=== PATIENT | male | born 1955 | race Caucasian/White ===

== ENCOUNTER 2018-09-16 11:29 | Inpatient (IN) | payer BC, OTHER ==
[~2018-09-16] VITALS: Ht 177.8 cm; Wt 81.6 kg
[2018-09-16 11:30] VITALS: BP 121/59
[2018-09-16 12:16] LABS: BASOPHILS 0.3 % (0.0-2.0); EOSINOPHILS 0.3 % (0.0-3.0); HEMATOCRIT 43.3 % (42.0-52.0); HEMOGLOBIN 14.5 gm/dL (14.0-18.0); LYMPHOCYTES 8.4 % (24.0-44.0); MCH 30.8 pg (26.0-34.0); MCHC 33.5 g/dL (28.0-37.0); MCV 92.1 fL (80.0-100.0); MONOCYTES 2.9 % (1.0-8.0); PLATELET COUNT 262 thou/uL (150-400); POLYS 88.1 % (36.0-66.0); RDW 13.6 % (10.5-14.5); WBC 15.8 thou/uL (4.0-11.0)
[2018-09-16 14:07] LABS: ANION GAP 10 mmol/L (7-16); BUN 20 mg/dL (7-18); CALCIUM 9.1 mg/dL (8.5-10.1); CHLORIDE 102 mmol/L (98-107); CO2 26 mmol/L (21-32); CREATININE 1.2 mg/dL (0.7-1.3); GLUCOSE 160 mg/dL (74-106); POTASSIUM 3.3 mmol/L (3.5-5.1); SGOT 27 U/L (15-37); SGPT 31 U/L (30-65); SODIUM 138 mmol/L (136-145); TOTAL BILIRUBIN 0.4 mg/dL (<0.1-1.0); TROPONIN-I <0.06 ng/mL (<0.06)
[2018-09-16 14:22] LABS: URINE BILIRUBIN NEGATIVE (Negative); URINE BLOOD NEGATIVE (Negative); URINE CLARITY CLEAR; URINE COLOR YELLOW; URINE GLUCOSE-RANDOM* NEGATIVE (Negative); URINE KETONES NEGATIVE (Negative); URINE LEUKOCYTES-REFLEX NEGATIVE (Negative); URINE NITRITE-REFLEX NEGATIVE (Negative); URINE PROTEIN (DIPSTICK) NEGATIVE (Negative)
[2018-09-16] MEDS ORDERED: CIPRO500 MG PO (14:35)
[2018-09-16] MEDS ORDERED: FLOMAX0.4 MG PO (14:35)
[2018-09-16] MEDS ORDERED: BENAZEPRIL HCL40 MG PO (14:36)
[2018-09-16] MEDS ORDERED: AMLODIPINE BESY10 MG PO (14:37)
[2018-09-16] MEDS ORDERED: PLAVIX 75 MG TA75 M1 PO (14:37)
[2018-09-16] MEDS ORDERED: METRONIDAZOLE500 M4 PO (14:38)
[2018-09-16] MEDS ORDERED: COREG6.25 MG PO (14:38)
[2018-09-16] MEDS ORDERED: CRESTOR40 MG PO (14:38)
[2018-09-16] MEDS ORDERED: CHLORTHALIDONE25 MG PO (14:39)
[2018-09-16 15:27] VITALS: BP 120/66
[2018-09-16 15:28] VITALS: BP 120/66
--- NOTE | 2018-09-16 16:06 | NUR ---
ATTEMPTED TO GIVE REPORT TO GAYLE CHANDLER RN; HELD FOR APPROX 3 MIN; WILL CALL BACK NAOMI
[2018-09-16 19:50] VITALS: BP 122/62
--- NOTE | 2018-09-16 19:50 | NUR ---
Admitted pt on the floor due to syncope, fracture on right ankle which he aquired from the syncopal episode. A+0x4. On room air. On carb controlled diet. With IV at L AC- verified with Dr Lester if to continue IVF or shift to since no further orders for the IVF. Pt visited by children today. Started on heart monitor, initial tele strips printed and placed on chart. Dr Lester informed re: pt admitted on the floor, asked if with further orders; as per Dr Lester ED already informed him and will see pt tomorrow, informed that meds has been reconciled at ER and asked which to resume- a/w reply, asked for PRN pain meds prescription- ordered Fentanyl 25mcg q2, and ordered NS to run at 100ml/hr- orders put in; also to include Zofran q4 PRN for nausea- Emar shown QT prolonging med- Dr Lester informed and aware. On falls risk- d/t admitting diagnosis of syncope, falls bundle in place. Pt on sby assist to toilet, offered walker so he won't weight bear on his R ankle- pt refused walker. With repeat Troponin at 1944- night staff informed, orders put in. Pt complained of pain while ongoing admission assessment, PRN pain medication given as prescribed. Night staff informed re: Pt's elevated WBC d/t diverticulitis and ongoing antibiotic treatment(Flagyl and Metronidazole) Day 9- Pt started on 09/07. Pt with Left adrenal mass seen from ED diagnostics- as per ED staff pt not aware of this and to let Dr Lester discuss it w/ pt- night staff informed. Pt with Hx of Afib and micheal, Heart rate on 50's-60's which was pt's baseline according to ER staff- verified if Dr Notified- ER staff mentioned that is aware. Vital signs stable, pt kept safe and comfortable.
[2018-09-17] VITALS (8 sets, daily range): BP systolic 114–134; BP diastolic 67–76
--- NOTE | 2018-09-17 05:15 | NUR ---
Assumed pt care at 1900. Pt A/OX4,VSS Sinus micheal at times on the monitor 50-60 asymptomatic. C/o pain to Right ankle medicated with Fentanyl with relief reported.Right ankle with a splint wrapped in acewrap,circulation intact. Up with SBA. IVF infusing via LAC without problems. Fall precautions in place. Resting quietly with eyes closed at this time,will continue to monitor pt.
--- NOTE | 2018-09-17 08:36 | NUR ---
ASSESSMENT: CM REVIEWED CHART AND MET WITH PATIENT AT THE BEDSIDE. PT WAS ADMITTED WITH SYNCOPE/FIBULA FX. PT REPORTS LIVING IN A HOUSE ALONE. PT REPORTS ABOUT 6 STEPS W HANDRAILS TO ENTER THE HOME AND ABOUT ANOTHER 6 STEPS WITH HANDRAILS ONCE INSIDE TO THE MAIN LEVEL. PT REPORTS HE NORMALLY AMBULATES INDEPENDENTLY. PT REPORTS THAT HE HAS A GRAB BAR AND SHOWER BENCH IN THE SHOWER AND IS INDEPENDENT WITH ADLS. PT REPORTS HE HAS NOT HAD HH IN THE PAST. CM DISCUSSED ROLE. PT IS TO SEE ORTHOPEDIC PHYSICIAN TODAY FOR FUTHER RECOMMENDATIONS FOR FX AND CM WILL CONTINUE TO FOLLOW.
[2018-09-17] MEDS ORDERED: NORCO 5-325 TA1 EAC1 PO (14:00)
--- NOTE | 2018-09-17 15:33 | NUR ---
PT is recommending pt have cane for assistance with ambulation. [facility] to provide cane for home use. No other needs identified.
--- NOTE | 2018-09-17 17:32 | NUR ---
Patient discharged and left unit at 1730 this evening. Patient out by wheelchair with transporter and daughter taking him home. Prescriptions, discharge instructions, and prescription print outs given to patient. All belongings with patient. 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
--- NOTE | 2018-09-20 17:48 | EKG ---
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 : 1955 Requested By: Tosha Rodney Order Number: [id number] MD: Tarik Rocha Measurements Intervals Iva Rate: 52 P: 61 OK: 188 QRS: -21 QRSD: 101 T: -26 QT: 419 QTc: 390 Interpretive Statements Sinus bradycardia Multiple ventricular premature complexes Inferior infarct, old Nonspecific T wave abnormality Baseline wander in lead(s) V4 Compared to ECG 08/28/2008 15:11:21 Ventricular premature complex(es) now present T wave abnormality is now present inferior Q waves are more prominent Electronically Signed On 09-20-2018 17:48:44 CDT by Tarik Rocha [email or web address] ��������������������������������������������� <ELECTRONICALLY SIGNED> ���������������������������������������� By: Tarik Rocha MD, [facility] ��������������������������������������������� 09/20/18 1748 1200 1200 Tarik Rocha MD, [facility] /EPI
== END 2018-09-17 17:43 | disposition home or self-care (01) | DRG 563 ==
LOC: ER 11:29 → 3W 14:36 → EROBS 14:36 → 3W 15:27 → ENTRNSPT 09-17 17:19 → 3W 09-17 17:43
PROVIDERS: Nurse Practitioner Family; ADMIT Family Medicine
PROC: 2W3QX1Z Immobilization of Right Lower Leg using Splint (ICD-10-PCS; principal; 2018-09-16)
DX: S82.61XA Displaced fracture of lateral malleolus of right fibula, initial encounter for closed fracture (principal); I10 Essential (primary) hypertension; D72.829 Elevated white blood cell count, unspecified; E78.5 Hyperlipidemia, unspecified; I25.10 Atherosclerotic heart disease of native coronary artery without angina pectoris; R00.1 Bradycardia, unspecified; I05.0 Rheumatic mitral stenosis; I25.2 Old myocardial infarction; Z87.891 Personal history of nicotine dependence; Z95.5 Presence of coronary angioplasty implant and graft; W18.39XA Other fall on same level, initial encounter; Y93.89 Activity, other specified; Y92.89 Other specified places as the place of occurrence of the external cause; Y99.8 Other external cause status
CPT/HCPCS: 10879

== ENCOUNTER → 2019-08-11 | Outpatient (CLI) | payer BC, OTHER ==
[~2019-08-11] MED LIST: AMLODIPINE BESY10 MG PO; BENAZEPRIL HCL40 MG PO; CHLORTHALIDONE25 MG PO; CIPRO500 MG PO; COREG6.25 MG PO; CRESTOR40 MG PO; FLOMAX0.4 MG PO; METRONIDAZOLE500 M4 PO; NORCO 5-325 TA1 EAC1 PO; PLAVIX 75 MG TA75 M1 PO
== END ==
LOC: SJCVCIMAG 09:24
PROVIDERS: ATTEND Internal Medicine Cardiovascular Disease
DX: I65.23 Occlusion and stenosis of bilateral carotid arteries (principal); I25.10 Atherosclerotic heart disease of native coronary artery without angina pectoris; I10 Essential (primary) hypertension; E78.00 Pure hypercholesterolemia, unspecified; R55 Syncope and collapse

== ENCOUNTER → 2020-02-10 | Outpatient (CLI) | payer BC, OTHER | LOC: SJCVCIMAG 08:27 | PROVIDERS: ATTEND Internal Medicine Cardiovascular Disease | DX: I49.3 Ventricular premature depolarization (principal); I25.10 Atherosclerotic heart disease of native coronary artery without angina pectoris; I25.2 Old myocardial infarction; E78.5 Hyperlipidemia, unspecified; I10 Essential (primary) hypertension; R94.31 Abnormal electrocardiogram [ECG] [EKG]; Z87.891 Personal history of nicotine dependence ==

== ENCOUNTER → 2021-02-14 | Outpatient (CLI) | payer BC, OTHER | LOC: SJCVCIMAG 09:50 | PROVIDERS: ATTEND Internal Medicine Cardiovascular Disease | DX: I37.1 Nonrheumatic pulmonary valve insufficiency (principal); I10 Essential (primary) hypertension; R00.1 Bradycardia, unspecified; E78.5 Hyperlipidemia, unspecified; Z87.891 Personal history of nicotine dependence ==

== ENCOUNTER 2021-03-30 14:03 | Inpatient (IN) | payer BC, OTHER ==
[~2021-03-30] VITALS: Ht 182.9 cm; Wt 90.6 kg
--- NOTE | ~2021-03-30 | P ---
[facility] [place] [address] [place] [address] PROCEDURE REPORT Name: TONY KING Room #: 218-P [facility] IN M.R.#: [id number] Admission: 03/30/21 Attend Phys: Manny Chawla MD Discharge: Date of : 57 Report #: [id number] THIS REPORT FOR: cc: Jose Lester MD, Neal A. MD Couchonnal, Luis F. MD ~ DATE OF SERVICE: 04/03/2021 ICD IMPLANTATION PREOPERATIVE DIAGNOSES: 1. Sustained monomorphic ventricular tachycardia. 2. Sinus bradycardia. 3. Coronary artery disease status post prior myocardial infarction. 4. Ischemic cardiomyopathy. 5. Presyncope and syncope. POSTOPERATIVE DIAGNOSES: 1. Sustained monomorphic ventricular tachycardia. 2. Sinus bradycardia. 3. Coronary artery disease status post prior myocardial infarction. 4. Ischemic cardiomyopathy. 5. Presyncope and syncope. HISTORY: The patient is a 65-year-old with history of coronary artery disease status post prior inferior NE, who has been experiencing syncope and presyncopal episodes, had a monitor tech showing sustained monomorphic ventricular tachycardia. He underwent diagnostic cardiac catheterization showing stable coronary artery disease. He had a recent echocardiogram showing preserved ejection fraction with evidence of an old inferior NE. He is here for ICD implantation for secondary prevention of sudden cardiac . ANESTHESIA: The patient underwent MAC anesthesia with no anesthesia related complications. DESCRIPTION OF PROCEDURE: The patient underwent informed consent. He was brought to the EP laboratory in fasting and nonsedated state. He was prepped and draped in a standard fashion. I injected lidocaine at the incision site. Incision was made, pocket created over the prepectoral fascia. Access was obtained twice to left axillary vein using the extrathoracic approach with sheaths positioned using the modified Seldinger technique. Under fluoroscopy, RV lead was placed in the right ventricular apex and atrial lead was placed in the right atrial appendage, both with adequate pacing and sensing thresholds. Leads were sutured to the prepectoral fascia. Device connected, tug test performed. Pocket was irrigated with vancomycin. Pocket closed in 2 layers. Surgical glue placed to outer skin layer. The patient awoke neurologically and [facility] [address] [place] [address] PROCEDURE REPORT Name: TONY KING Room #: 218-P [facility] IN [facility].#: [id number] Admission: 03/30/21 Attend Phys: Manny Chawla MD Discharge: Date of : 57 Report #: [id number] hemodynamically intact. No complications and no significant bleeding. The implanted defibrillator was a [employer], model number TKMO6M2, serial number [id number]. The atrial lead was a 5076, 52 cm, serial number [id number]. RV lead was 6935, 62 cm, serial number [id number]. Atrial lead demonstrated P waves of 3.3 millivolts, pacing impedance of 454 ohms, pacing threshold 0.7 volts at 0.5 milliseconds. RV lead demonstrated R waves of 14.7 millivolts, pacing impedance of 632 ohms, pacing threshold 0.5 volts at 0.5 milliseconds. The device was programmed to DDDR 60-130 mode. VT monitor zone was set at 180-240 beats per minute with 3 rounds of burst followed by 3 rounds of ramp followed by max output shocks. The VF zone was set at greater than 240 beats per minute with ATP while charging followed by max output shocks. CONCLUSION: Successful dual chamber ICD implantation. By: 1402 [id number] Javon Squires MD /nt
[2021-03-30 14:10] VITALS: BP 177/76
[2021-03-30] MEDS ORDERED: ASA81BEC PO (14:16)
[2021-03-30 14:58] LABS: ABSOLUTE NEUTROPHILS 7.5 thou/uL (1.4-8.2); BASOPHILS 0.4 % (0.0-2.0); EOSINOPHILS 0.2 % (0.0-3.0); HEMATOCRIT 43.3 % (42.0-52.0); HEMOGLOBIN 14.4 gm/dL (14.0-18.0); LYMPHOCYTES 11.9 % (24.0-44.0); MCHC 33.2 g/dL (28.0-37.0); MCV 90.4 fL (80.0-100.0); MONOCYTES 2.5 % (1.0-8.0); PLATELET COUNT 277 thou/uL (150-400); RBC 4.79 mil/uL (4.50-6.00); RDW 13.6 % (10.5-14.5); WBC 8.8 thou/uL (4.0-11.0)
[2021-03-30 15:18] LABS: CREATININE 1.3 mg/dL (0.7-1.3); POTASSIUM 3.8 mmol/L (3.5-5.1)
[2021-03-30 15:20] LABS: APTT 26.5 Seconds (24.5-32.8); INR 1.03; PROTIME 11.2 Seconds (10.5-12.1)
[2021-03-30 15:28] LABS: ALBUMIN 4.1 g/dL (3.4-5.0); MAGNESIUM 2.3 mg/dL (1.8-2.4); TOTAL BILIRUBIN 0.4 mg/dL (0.2-1.0); TOTAL PROTEIN 7.1 g/dL (6.4-8.2)
--- NOTE | 2021-03-30 16:42 | NUR ---
Pt admitted related to v tach. Cm reviewed chart and spoke with care team. Pt indicated he lives alone in a house with 6 steps to enter and 6 steps to jarvis level inside. 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 Pt indicated his dtr marv monreal is good contace . Cardiology saw and inidcated that pt had multiple episodes noted on recent event monitor. Patient having episodes of presyncope. They plan to initiate IV amiodarone bolus and then 1 mg/min drip, run continuously until order DC'd. Will convert to PO prior to discharge. Tentative plans for cardiac catheterization with Dr. Palacios on Friday. Will consult electrophysiology to see on Friday, possible AICD placement on Friday. Pt indicated he plans to go on vacation in [place] upon dc. cm following regarding dc planning.
[2021-03-30] MEDS ORDERED: ZETIA10 MG PO (23:15)
[2021-03-30] MEDS ORDERED: PREDNISONE 10 M10 M1 PO (23:34)
[2021-03-30] MEDS ORDERED: DORYX MPC120 MG PO (23:36)
[2021-03-31 04:45] VITALS: BP 100/61; BP 123/62
--- NOTE | 2021-03-31 05:08 | NUR ---
PT ADMITTED TO ROOM 218 AROUND 2220 FOR VTACH, A&0X4, DFENIES PAIN OR SOA, SB BETWEEN 40S-50S, ADMISSION HX, ASSESSMENT AND EDUCATION COMPLETED, PT ON CONTINUOUS AMIO GTT AT 1, NO EVENTS NOTED ON THIS PT, VITAL SIGNS STABLE, NO EVENTS NOTED ON THIS PT, WILL CONTINUE TO MONITOR PER POC
[2021-03-31 08:10] VITALS: BP 147/74
[2021-03-31 12:10] VITALS: BP 110/57
[2021-03-31 15:45] VITALS: BP 104/49
--- NOTE | 2021-03-31 17:02 | NUR ---
Pt has been A&0x4, SB on monitor, HR 40s-50s. Amiodarone drip DC'd and pt started on PO amiodarone BID. Pt has had no episodes of VTach. No complaints of chest pain. Pt has been resting in bed and chair and is up ad marimar. No current concerns. continue to monitor.
[2021-03-31 20:21] VITALS: BP 120/73
[2021-03-31] MEDS ORDERED: XANAX 0.25 MG0.25 MG PO (21:27)
[2021-04-01 04:35] VITALS: BP 106/63
--- NOTE | 2021-04-01 05:12 | NUR ---
ASSESSMENTS CHARTED, VSS, NO C/O PAIN, PLANNED C. CATH ON FRIDAY, WILL CON'T TO MONITOR PER PPOC.
[2021-04-01 07:50] VITALS: BP 122/71
--- NOTE | 2021-04-01 11:21 | EKG ---
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 : 1955 Requested By: Manny Chawla Order Number: [id number] MD: Steve Palacios Measurements Intervals [place] Rate: 47 P: 63 LA: 183 QRS: -20 QRSD: 110 T: -19 QT: 425 QTc: 376 Interpretive Statements Sinus bradycardia Borderline left axis deviation Nonspecific T wave abnormalities Compared to ECG 09/16/2018 12:00:35 Ventricular premature complex(es) no longer present Myocardial infarct finding no longer present T-wave abnormality no longer present Electronically Signed On 04-01-2021 11:21:43 ADVERTISING DIRECTOR by Steve Palacios [email or web address] <ELECTRONICALLY SIGNED> By: Steve Palacios MD 04/01/21 1121 1419 1419 Steve Palacios MD /[facility]
[2021-04-01 11:55] VITALS: BP 115/65
[2021-04-01 15:50] VITALS: BP 106/56
--- NOTE | 2021-04-01 17:09 | NUR ---
Pt has been A&0x4, VS stable, SB on the monitor and aferbile. Pt ambulated around unit in AM. Pt has been sitting in chair. Daughter was at bedside. No complaints of pain. Plan is for procedur 04/[address] Palacios and pt is aware of NPO status after midnight tonight. No current concerns. Continue to monitor.
[2021-04-01 20:05] VITALS: BP 134/57
[2021-04-02] VITALS (10 sets, daily range): BP systolic 111–132; BP diastolic 55–81
--- NOTE | 2021-04-02 05:15 | NUR ---
PROGRESS PT A/O X4. LUNGS CLEAR. VSS. UP AD GANESH VOIDING QS NPO AFTER MN PENDING LEFT HEART CATH IN AM. VOIDING QS TELEMETRY INTACT READING SR CONTINUE POC.
[2021-04-02 11:38] LABS: HEMATOCRIT 42.3 % (42.0-52.0); HEMOGLOBIN 14.1 gm/dL (14.0-18.0); MCH 29.9 pg (26.0-34.0); MCHC 33.2 g/dL (28.0-37.0); MCV 89.9 fL (80.0-100.0); RBC 4.7 mil/uL (4.50-6.00); RDW 13.3 % (10.5-14.5); WBC 9.8 thou/uL (4.0-11.0)
[2021-04-02 11:44] LABS: CALCIUM 8.6 mg/dL (8.5-10.1); CREATININE 1.3 mg/dL (0.7-1.3); POTASSIUM 3.6 mmol/L (3.5-5.1)
--- NOTE | 2021-04-02 14:12 | CATHLAB ---
[facility] [place] [address] [place] [address] INVASIVE PROCEDURE REPORT Name: TONY KING Room #: 218-P ADM IN M.R.#: [id number] Admission: 03/30/21 Attend Phys: Manny Chawla MD Discharge: Date of : 57 Report #: [id number] THIS REPORT FOR: cc: Jose Lester MD, Neal A. MD Park, Jin S. MD ~ APPROVED REPORT Study performed: 04/02/2021 07:35:07 Patient Details Patient Status: In-Patient Room #: 218 The patient is a 65 year-old male Event Personnel Steve Palacios Broadcast Technician, Mike Gale RN RN, Nayana Jon Wood, Amy RTR Monitor, Jaimie Atkins RTR, [employer] PROGRAM SPECIALIST Monitor Procedures Performed Art Access - R femoral artery* Hemostasis with Manual pressure Left Heart Cath w/LT VGram [id number] LHCLV 48782 Initial Mod Sed Same Phys/QHP Gr5y 711074 78211 Mod Sed Same Phys/QHP Ea 255131 Indication Arrhythmia, Dizziness and vertigo, Chest pain, The patient presented with dizziness due to nonsustained ventricular tachycardia on the monitor, longest episode is 58 seconds. Risk Factors Hypercholesterolemia, Coronary Artery DiseaseHypertension Previous Procedures/Diagnoses Previous PCI, Previous PR Procedure Narrative The Right Groin^ was infiltrated with 1% Lidocaine subcutaneous anesthesia. A PINNACLE 4FR Sheath #[id number] sheath was inserted into the RFA. Coronary angiography was performed using coronary diagnostic catheters. The right coronary system was accessed and visualized with a JR4 catheter. The left coronary system was accessed and visualized with a 4FR JL 5.0 #[id number] catheter. The left ventricle was accessed and visualized with a ANGLED PIGTAIL catheter. Left [facility] [address] [place] [address] INVASIVE PROCEDURE REPORT Name: TONY KING Room #: 218-P [facility]#: [id number] Admission: 03/30/21 Attend Phys: Manny Chawla MD Discharge: Date of : 57 Report #: [id number] ventricular/Aortic Valve gradient assessed via catheter pullback. Left ventriculogram was performed in CABALLERO projection. Hemostasis was obtained with manual pressure following sheath removal without any complications. The patient tolerated the procedure well and there were no complications associated with the procedure. There was no hematoma. Intraoperative Conscious Sedation Sedation start time: 08:09 Case end Time: 08:50 Fentanyl 50 mcg Versed 1 mg Fluoro Time: 2.90 minutes Dose: DAP 7650.80 cGycm2 1052 mGy Contrast Type and Amount: Visipaque 125 ml Coronary Angiography The patient's coronary anatomy is right dominant. Diagnostic Cath Left Main Left main artery is a large-caliber vessel, patent with no flow-limiting lesions. LAD The LAD is a moderate-sized caliber vessel, traverses the anterior wall and wraps around the apex. There is mild diffuse disease in the midsegment, 20 to 30%. Diagonal 1 This is a small caliber vessel, with no flow-limiting lesions. Diagonal 2 This is a small caliber vessel, with a moderate proximal stenosis. Circumflex The left circumflex artery is a moderate-sized caliber vessel, with mild to moderate diffuse disease in the midsegment, 30 to 50%. OM1 This is a moderate-sized caliber vessel with a moderate proximal stenosis, 40%. OM2 There is a severe stenosis in the proximal segment, 70%. Right Coronary The RCA is a dominant vessel with multiple overlapping stents in the mid to distal RCA segment. There is moderate diffuse restenosis, 40 to 50%. R PDA This is a moderate-sized caliber vessel, patent with no flow-limiting lesions. RPLV This is a small to moderate-sized caliber vessel, patent with no flow-limiting lesions. Left Ventriculography The left ventricle is mildly dilated in size with Diminished contractility. The left ventricular ejection fraction is estimated to [facility] [address] [place] [address] INVASIVE PROCEDURE REPORT Name: TONY KING Room #: 218-P [facility] IN M.R.#: [id number] Admission: 03/30/21 Attend Phys: Manny Chawla MD Discharge: Date of : 57 Report #: [id number] be 40-45%. Left ventricular wall motion abnormalities are present. There is hypokinesis of the mid to basal inferior wall. Hemodynamics The aortic pressure is 135/66 mmHg with a mean of 93 mmHg. The left ventricular pressure is 138/17 mmHg with a mean of mmHg. The left ventricular end diastolic pressure is 24 mmHg. Conclusion 1. There is moderate restenosis in the RCA stents. 2. There is mild disease in the mid LAD. 3. There is mild to moderate disease in the left circumflex artery. 4. There is a severe stenosis in the second obtuse marginal artery, recommend an ischemic evaluation. 5. There is mild to moderate segmental LV dysfunction with inferior wall hypokinesis. 6. Recommend EP study for ventricular tachycardia. 7. Recommend risk factor management. <ELECTRONICALLY SIGNED> By: Steve Palacios MD 04/02/211411 11 11 Steve Palacios MD /INF
--- NOTE | 2021-04-02 14:49 | NUR ---
SW reviewed chart and spoke with attending physician. Pt to have cardiac cath today and possible AICD placement tomorrow. Plan is for pt to discharge home when medically stable. SW is available to assist as needed with discharge planning.
--- NOTE | 2021-04-02 19:42 | NUR ---
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 Hemostasis was at 0900 and ot was off bedrest at 1200. Groin site is C/D/I, no hematoma. Pt is up ad marimar. Plan is for ICD placement on 04/03. Pt has 2 IV access per OR request. No complaints of pain. No current concerns. Continue to monitor.
[2021-04-03 00:15] VITALS: BP 121/53
[2021-04-03 04:57] LABS: HEMATOCRIT 41.7 % (42.0-52.0); HEMOGLOBIN 13.8 gm/dL (14.0-18.0); MCH 29.8 pg (26.0-34.0); MCHC 33.1 g/dL (28.0-37.0); RBC 4.63 mil/uL (4.50-6.00); RDW 13.5 % (10.5-14.5); WBC 12.6 thou/uL (4.0-11.0)
[2021-04-03 05:00] LABS: CALCIUM 8.1 mg/dL (8.5-10.1); CREATININE 1.2 mg/dL (0.7-1.3); POTASSIUM 3.4 mmol/L (3.5-5.1)
[2021-04-03 05:07] VITALS: BP 121/70
--- NOTE | 2021-04-03 07:26 | NUR ---
PT LEFT FLOOR FOR PROCEDURE AT 0640, IV INFUSING, GROINS CDI, NO C/O PAIN, VSS, WILL CON'T TO MONITOR PER PPOC.
--- NOTE | 2021-04-03 09:36 | NUR ---
Pt off unit since this nurse start of shift @ 0700 for ICD placement.
[2021-04-03 12:10] VITALS: BP 136/76
[2021-04-03 15:50] VITALS: BP 139/76
[2021-04-03 20:00] VITALS: BP 129/68
[2021-04-04 04:00] VITALS: BP 144/62
--- NOTE | 2021-04-04 04:59 | NUR ---
PT ALERT AND ORIENTED X4; MOVES ALL EXTREMITIES AND FOLLOWS COMMANDS. DENIES PAIN THIS SHIFT. RIGHT GROIN SITE C/D/I. LEFT ARM SLING IN PLACE. ALL VS AND ASSESSMENTS CHARTED. CURRENTLY RESTING WITH EYES CLOSED, RESP EVEN AND NON LABORED. NO DISTRESS NOTED AT THIS TIME.
[2021-04-04 08:00] VITALS: BP 147/77
[2021-04-04] MEDS ORDERED: ASPIRIN EC81 M1 PO (08:28)
[2021-04-04] MEDS ORDERED: PACERONE 200 M200 M1 PO (08:28)
[2021-04-04 12:00] VITALS: BP 124/68; BP 92/71
[2021-04-04] MEDS ORDERED: COREG6.25 MG PO (13:15)
[2021-04-04] MEDS ORDERED: LISINOPRIL20 MG PO (13:15)
--- NOTE | 2021-04-04 13:39 | NUR ---
ASSUMED PT CARE THIS MORNING. PT A&OX4 AND COMMUNICATING NEEDS APPROPRIATELY TO STAFF. PT AMBULATING IN THE ROOM INDEPENDENTLY. LOW FALL RISK BUT FALL PREVENTION EDUCATION WAS PROVIDED. PT HAD A GOOD APPETITE AND CONSUMED 100% OF BOTH BREAKFAST AND LUNCH. PT VOIDING WITHOUT ISSUE. DC INSTRUCTIONS REVIEWED WITH THE PT AND QUESTIONS INVITED. TELE MONITORING AND IV WERE DISCONTINUED. PT WAS SENT HOME WITH THEIR BELONGINGS TO THE CARE OF FAMILY.
[2021-04-04 13:43] VITALS: BP 124/68
== END 2021-04-04 16:29 | disposition home or self-care (01) | DRG 225 ==
LOC: ER 14:03 → EROBS 15:50 → 2N 15:50
PROVIDERS: Emergency Medicine; Internal Medicine Cardiovascular Disease; ADMIT Hospitalist; ATTEND Hospitalist
PROC: B215YZZ Fluoroscopy of Left Heart using Other Contrast (ICD-10-PCS; principal; 2021-04-02)
PROC: B211YZZ Fluoroscopy of Multiple Coronary Arteries using Other Contrast (ICD-10-PCS; principal; 2021-04-02)
PROC: 4A023N7 Measurement of Cardiac Sampling and Pressure, Left Heart, Percutaneous Approach (ICD-10-PCS; principal; 2021-04-02)
PROC: 02HK3KZ Insertion of Defibrillator Lead into Right Ventricle, Percutaneous Approach (ICD-10-PCS; 2021-04-03)
PROC: 02H63KZ Insertion of Defibrillator Lead into Right Atrium, Percutaneous Approach (ICD-10-PCS; 2021-04-03)
PROC: 0JH608Z Insertion of Defibrillator Generator into Chest Subcutaneous Tissue and Fascia, Open Approach (ICD-10-PCS; 2021-04-03)
PROC: 4B02XTZ Measurement of Cardiac Defibrillator, External Approach (ICD-10-PCS; 2021-04-04)
DX: I47.1 Supraventricular tachycardia (principal); I10 Essential (primary) hypertension; E78.5 Hyperlipidemia, unspecified; I25.10 Atherosclerotic heart disease of native coronary artery without angina pectoris; I25.5 Ischemic cardiomyopathy; E87.6 Hypokalemia; Z20.822 Contact with and (suspected) exposure to COVID-19; Z95.5 Presence of coronary angioplasty implant and graft; Z88.8 Allergy status to other drugs, medicaments and biological substances; Z82.49 Family history of ischemic heart disease and other diseases of the circulatory system; Z87.891 Personal history of nicotine dependence

== ENCOUNTER → 2021-04-27 | Outpatient (CLI) | payer BC, OTHER ==
[~2021-04-27] MED LIST changes: +ASA81BEC PO; +ASPIRIN EC81 M1 PO; +DORYX MPC120 MG PO; +LISINOPRIL20 MG PO; +PACERONE 200 M200 M1 PO; +PREDNISONE 10 M10 M1 PO; +XANAX 0.25 MG0.25 MG PO; +ZETIA10 MG PO
== END ==
LOC: SJCVCIMAG 04-19 14:41
PROVIDERS: ATTEND Internal Medicine Cardiovascular Disease
DX: I25.9 Chronic ischemic heart disease, unspecified (principal); I21.9 Acute myocardial infarction, unspecified; R94.39 Abnormal result of other cardiovascular function study; I47.2 Ventricular tachycardia; I10 Essential (primary) hypertension; I25.10 Atherosclerotic heart disease of native coronary artery without angina pectoris; E78.5 Hyperlipidemia, unspecified; Z87.891 Personal history of nicotine dependence